=== PATIENT | male | born 1965 | race Caucasian/White ===

== ENCOUNTER 2018-03-15 12:55 | Day surgery (SDC) | payer OTHER, SELFPAY ==
[2018-03-15 13:27] VITALS: BP 152/99; PULSE 77; RESP 16; TEMP 36.2; O2SAT 95
[2018-03-15] MEDS: SODIUM CHLORIDE 0.9% 1,000 ML 21 ML IV (13:31)
[2018-03-15] MEDS: MIDAZOLAM 5 MG/5 ML VIAL IV (14:08)
[2018-03-15] MEDS: fentaNYL 250 MCG/5 ML INJ IV (14:09)
[2018-03-15 14:30] VITALS: BP 135/88; PULSE 81; RESP 20; TEMP 37.3; O2SAT 97
--- NOTE | 2018-03-15 17:10 | OP_ITS ---
DATE OF SERVICE: 03/15/2018 PREOP DIAGNOSIS: Screening colonoscopy. POSTOP DIAGNOSES: Normal colon. Regarding any polyps or tumors, the patient has [id number] sigmoid and descending colon diverticulosis. PROCEDURE: Total colonoscopy to the cecum. SURGEON: Sarmad Jean MD DESCRIPTION OF PROCEDURE: The patient was properly identified during a surgical pause, given conscious sedation, and the flexible fiberoptic colonoscope inserted transanally to the cecum. There were no tumors. No polyps. No ulcerations. The patient has [id number] sigmoid and descending diverticulosis. Numerous photographs were taken. The procedure was very well tolerated. Kike Levy - /luz maria/chiquita doc#: [id number]/job#: [id number] dd: 03/15/2018 14:21:00 dt: 03/15/2018 17:04:00 DICTATING MD/COPIES TO: Sarmad Jean MD COPIES MNE: MICK
--- NOTE | 2018-03-16 07:56 | HP_ITS ---
DATE OF SERVICE: 03/15/2018 PREOPERATIVE DIAGNOSIS: Screening colonoscopy. HISTORY OF PRESENT ILLNESS: The patient has no complaints referable to his colon. No melena. No hematochezia. No abdominal pain. No change in his bowel habits. He is coming in for a screening exam. PAST MEDICAL HISTORY: He does have a history of mild depression. PAST SURGICAL HISTORY: He had a tonsillectomy and adenoidectomy as a child. No other significant medical or surgical problems. ALLERGIES: NO KNOWN MEDICAL ALLERGIES. MEDICATIONS: He is on Prozac. He does also take Lipitor. He is also taking omeprazole. REVIEW OF SYSTEMS: He denies chest pain or unusual shortness of breath. GI: Negative. : Negative. NEUROLOGIC: No strokes or TIAs. PHYSICAL EXAMINATION VITAL SIGNS: Blood pressure 140/80, heart rate in the 80s. HEENT: Ears, nose, and throat are normal. NECK: No adenopathy. LUNGS: Clear with no rales or wheezes. HEART: Regular rhythm. No murmur. ABDOMEN: Soft, nontender. RECTAL: Exam will be done at the time of colonoscopy. ASSESSMENT: His physical is unremarkable. The diagnosis is screening colonoscopy. Kike Levy - /luz maria/chiquita doc#: [id number]/job#: [id number] dd: 03/15/2018 13:42:00 dt: 03/15/2018 16:57:00 DICTATING MD/COPIES TO: Sarmad Jean MD COPIES MNE: MICK
== END 2018-03-15 14:45 | disposition home or self-care (01) ==
PROVIDERS: PCP Family Medicine; Visit Provider Surgery
PROC: 0DJD8ZZ Inspection of Lower Intestinal Tract, Via Natural or Artificial Opening Endoscopic (ICD-10-PCS; CPT 45378; principal; 2018-03-15 14:00)
DX: Z12.11 Encounter for screening for malignant neoplasm of colon (principal); K57.30 Diverticulosis of large intestine without perforation or abscess without bleeding
CPT/HCPCS: 45378; J2250; J3010

== ENCOUNTER → 2018-09-18 11:06 | Outpatient (CLI) | payer OTHER, SELFPAY ==
[2018-09-18 12:11] LABS: Add Manual Diff / Slide Review NO; Hematocrit 39.2 % (41-53); Hemoglobin 13.6 g/dL (13.5-17.5); Lymphocytes Percent Auto 25.8 % (25-40); Mean Corpuscular HGB Conc 34.7 % (30-36); Mean Corpuscular Volume 97.9 fL (80-100); Monocytes Percent Auto 7.1 % (3-14); Neutrophils Absolute Auto 4500 /uL (1500-7000); Neutrophils Percent Auto 64.1 % (50-75); Platelet Count 268 X10^3/uL (150-400); Red Blood Cell Count 4.01 X10^6/uL (4.5-5.9); Red Cell Distribution Width 12.8 % (11.6-14.8); White Blood Cell Count 7.1 X10^3/uL (4.5-11.0)
[2018-09-18 12:39] LABS: Alanine Aminotransferase 37 IU/L (21-72); Albumin 4.3 g/dL (3.5-5.0); Albumin Globulin Ratio 1.4 (1.0-2.8); Alkaline Phosphatase 111 U/L (38-126); Aspartate Aminotransferase 33 IU/L (17-59); BUN Creatinine Ratio 17.1 (6-22); Bilirubin Total 0.7 mg/dL (0.2-1.3); Blood Urea Nitrogen 12 mg/dL (9-20); Calcium 9.2 mg/dL (8.4-10.2); Carbon Dioxide 26 mmol/L (22-32); Chloride 105 mmol/L (98-107); Cholesterol 238 mg/dL (140-199); Estimated Glomerular Filt Rate > 60.0 mL/min (>60); Globulin 3.1 g/dL (1.7-4.1); Glucose 102 mg/dL (70-100); HDL Cholesterol 48 mg/dL (40-60); HEMOLYSIS < 15 (0-50); LDL Cholesterol Calculated 142 mg/dL (<100); Potassium 4.1 mmol/L (3.4-5.1); Sodium 142 mmol/L (137-145); Total Protein 7.4 g/dL (6.3-8.2); Triglycerides 242 mg/dL (35-150)
[2018-09-18 13:10] LABS: TSH w/ Reflex to FT4 2.09 uIU/mL (0.47-4.68)
== END ==
PROVIDERS: PCP Family Medicine; Visit Provider Family Medicine
DX: E78.5 Hyperlipidemia, unspecified (principal); R10.13 Epigastric pain; Z12.5 Encounter for screening for malignant neoplasm of prostate; Z13.0 Encounter for screening for diseases of the blood and blood-forming organs and certain disorders involving the immune mechanism; Z13.29 Encounter for screening for other suspected endocrine disorder
CPT/HCPCS: 36415; 80053; 80061; 84153; 84443; 85025

== ENCOUNTER → 2018-12-16 11:43 | Outpatient (CLI) | payer OTHER, SELFPAY ==
[2018-12-16 12:26] LABS: Hemoglobin A1C% w Est Avg Glu 5.2 % (4.0-6.0)
[2018-12-16 12:44] LABS: BUN Creatinine Ratio 15.7 (6-22); Blood Urea Nitrogen 11 mg/dL (9-20); Calcium 9.2 mg/dL (8.4-10.2); Carbon Dioxide 28 mmol/L (22-32); Chloride 103 mmol/L (98-107); Cholesterol 183 mg/dL (140-199); Estimated Glomerular Filt Rate > 60.0 mL/min (>60); Glucose 103 mg/dL (70-100); HDL Cholesterol 55 mg/dL (40-60); HEMOLYSIS < 15 (0-50); LDL Cholesterol Calculated 89 mg/dL (<100); Potassium 4.1 mmol/L (3.4-5.1); Sodium 140 mmol/L (137-145); Triglycerides 197 mg/dL (35-150)
== END ==
PROVIDERS: PCP Family Medicine; Visit Provider Family Medicine
DX: E78.5 Hyperlipidemia, unspecified (principal)
CPT/HCPCS: 36415; 80048; 80061; 83036

== ENCOUNTER → 2019-10-07 14:52 | Outpatient (CLI) | payer OTHER, SELFPAY ==
--- NOTE | 2019-10-07 14:54 | DI.CT.S_ITS ---
PROCEDURE: CT SINUS SCREEN WO CON INDICATIONS: recurrent sinus infections, retirement post nasal drip TECHNIQUE: Noncontrast 3.0 mm axial images acquired from the frontal sinuses to the mid-sella, with coronal and sagittal reformats. For radiation dose reduction, the following was used: automated exposure control, adjustment of mA and/or kV according to patient size. COMPARISON: [facility], MR, BRAIN (IAC) W&WO CONTRAST, 09/11/2016, 7:41. FINDINGS: Image quality: Excellent. Maxillary Sinuses: No bony remodeling or destruction. Sinuses are clear. Ethmoid Air Cells: No bony remodeling or destruction. Sinuses are clear. Sphenoid Sinuses: No bony remodeling or destruction. Sinuses are clear. Frontal Sinuses: No bony remodeling or destruction. Sinuses are clear. Ostiomeatal Complexes: Ostiomeatal complexes are patent, yet they are constitutionally narrowed, additional infraorbital air cells, right worse than left. Miscellaneous: Visualized intra-orbital contents are normal. There is a right-sided conchal bullosa. There is mild to moderate leftward nasal septal deviation. IMPRESSION: No significant active paranasal sinus disease is seen. Constitutionally narrowed ostiomeatal complexes. Right-sided conchal bullosa. Mild to moderate leftward nasal septal deviation. Dictated by: Jordan Augustin M.D. on 10/07/2019 at 16:04 Approved by: Jordan Augustin M.D. on 10/07/2019 at 16:05
== END ==
PROVIDERS: PCP Family Medicine; Visit Provider Family Medicine
DX: J32.9 Chronic sinusitis, unspecified (principal); R09.82 Postnasal drip; J34.3 Hypertrophy of nasal turbinates; J34.2 Deviated nasal septum
CPT/HCPCS: 70486

== ENCOUNTER → 2019-11-04 08:54 | Outpatient (CLI) | payer OTHER, SELFPAY ==
[2019-11-04 11:12] LABS: Alanine Aminotransferase 26 IU/L (<50); Albumin 4.3 g/dL (3.5-5.0); Albumin Globulin Ratio 1.5 (1.0-2.8); Alkaline Phosphatase 111 U/L (38-126); Aspartate Aminotransferase 35 IU/L (17-59); BUN Creatinine Ratio 17.1 (6-22); Bilirubin Total 0.5 mg/dL (0.2-1.3); Blood Urea Nitrogen 12 mg/dL (9-20); Calcium 8.8 mg/dL (8.4-10.2); Carbon Dioxide 27 mmol/L (22-32); Chloride 104 mmol/L (98-107); Cholesterol 165 mg/dL (140-199); Estimated Glomerular Filt Rate > 60.0 mL/min (>60); Globulin 2.9 g/dL (1.7-4.1); Glucose 93 mg/dL (70-100); HDL Cholesterol 48 mg/dL (40-60); HEMOLYSIS < 15 (0-50); LDL Cholesterol Calculated 75 mg/dL (<100); Potassium 3.9 mmol/L (3.4-5.1); Sodium 141 mmol/L (137-145); Total Protein 7.2 g/dL (6.3-8.2); Triglycerides 212 mg/dL (35-150)
[2019-11-04 11:27] LABS: Thyroid Stimulating Hormone 2.49 uIU/mL (0.47-4.68)
== END ==
PROVIDERS: PCP Family Medicine; Referring Provider Family Medicine; Visit Provider Family Medicine
DX: Z13.29 Encounter for screening for other suspected endocrine disorder (principal); E78.5 Hyperlipidemia, unspecified; I10 Essential (primary) hypertension
CPT/HCPCS: 36415; 80053; 80061; 84443